=== PATIENT | male | born 2005 | race Caucasian/White ===

== ENCOUNTER 2024-06-12 13:59 | Outpatient (CLI) | payer BC | END 2024-06-12 14:00 | disposition home or self-care (01) | LOC: CSHULT 13:59 | PROVIDERS: ATTEND Family Medicine | DX: R07.9 Chest pain, unspecified (principal); Z86.79 Personal history of other diseases of the circulatory system; Z82.49 Family history of ischemic heart disease and other diseases of the circulatory system | CPT/HCPCS: 93306 ==